=== PATIENT | female | born 1980 | race Caucasian/White ===

== ENCOUNTER → 2016-09-21 | Outpatient (REF) ==
[~2016-09-21] MED LIST: ASPIRIN 32325 MG/TAB PO; COUMADIN 1010 MG/TAB PO; FIORICET 325 MG1 TA1 PO; FIORINAL 325 MG1 CAP PO; KLONOPIN 0.5MG0.5 MG PO; LEXAPRO20 MG PO; LYRICA 150MG C150 MG PO; PLAQUENIL 200M200 MG PO; TOPAMAX 100MG100 M1 PO; ULTRAM 50MG TAB50 MG PO
== END ==
LOC: ZLAB.WCH 11:38
DX: Z01.89 Encounter for other specified special examinations (principal)

== ENCOUNTER 2017-04-02 18:38 | Inpatient (IN) | payer MEDICARE ==
[~2017-04-02] VITALS: Ht 165.1 cm; Wt 56.6 kg
[2017-04-02] MEDS ORDERED: COUMADIN 1010 MG/TAB PO (18:53)
[2017-04-02 19:37] LABS: INR 2.8 (0.8-3.0); PROTHROMBIN TIME 32.8 SECONDS (9.7-12.8)
[2017-04-02 19:42] LABS: HEMATOCRIT 39.7 % (37.0-47.0); HEMOGLOBIN 12.8 g/dl (12.5-16.0); MEAN CELL VOLUME 82 fl (80.0-100.0); MEAN CORPUSCULAR HEMOGLOBIN 26 pg (27.0-31.0); MEAN CORPUSCULAR HGB CONC 32 g/dl (33.0-37.0); MEAN PLATELET VOLUME 12.1 fl (7.4-10.4); PLATELET COUNT 248 K/mm3 (130-400); RED BLOOD COUNT 4.84 M/mm3 (4.10-5.30); REDCELL DISTRIBUTION WIDTH-CV 20.6 % (11.5-14.5); WHITE BLOOD COUNT 5.6 K/mm3 (4.8-10.8)
[2017-04-02 19:43] LABS: ADD PATHOLOGY DIFF REVIEW NO
[2017-04-02 20:02] LABS: BAND 7 % (0-10); BASOPHIL 1 % (0-2); EOSINOPHIL 3 % (0-4); NEUTROPHILS 52 % (42.0-75.2); TOTAL CELLS COUNTED 100
[2017-04-02 20:03] LABS: PLATELET ESTIMATE NORMAL (NORMAL)
[2017-04-02] MEDS ORDERED: LYRICA 150MG C150 MG PO (20:15)
[2017-04-02 20:16] LABS: ADJUSTED CALCIUM 8.6 mg/dL (8.4-10.2); ALANINE AMINOTRANSFERASE 24 U/L (9-52); ALBUMIN 3.5 gm/dL (3.5-5.0); ALKALINE PHOSPHATASE 57 U/L (50-136); ANION GAP 6 mmol/L (7-16); BILIRUBIN,TOTAL 0.3 mg/dL (0.0-1.0); BLOOD UREA NITROGEN 16 mg/dL (7-17); CALCIUM 8.2 mg/dL (8.4-10.2); CARBON DIOXIDE 20 mmol/L (22-30); CHLORIDE 110 mmol/L (98-107); CREATININE, serum 0.83 mg/dL (0.52-1.25); GLUCOSE 82 mg/dL (74-106); POTASSIUM 3.5 mmol/L (3.4-5.0); SODIUM 137 mmol/L (137-145); TOTAL PROTEIN 6.6 gm/dL (6.4-8.2)
[2017-04-02] MEDS ORDERED: LEXAPRO20 MG PO (20:16)
[2017-04-02] MEDS ORDERED: TOPAMAX 100MG100 M1 PO (20:16)
[2017-04-02] MEDS ORDERED: PLAQUENIL 200M200 MG PO (20:17)
[2017-04-02] MEDS ORDERED: ASPIRIN 32325 MG/TAB PO (20:17)
[2017-04-02 20:18] LABS: C-REACTIVE PROTEIN < 0.5 mg/dL (0.0-0.9)
[2017-04-02] MEDS ORDERED: FIORINAL 325 MG1 CAP PO (20:18)
[2017-04-02] MEDS ORDERED: ULTRAM 50MG TAB50 MG PO (20:19)
[2017-04-02] MEDS ORDERED: FIORICET 325 MG1 TA1 PO (20:19)
[2017-04-02] MEDS ORDERED: KLONOPIN 0.5MG0.5 MG PO (20:20)
[2017-04-02 22:35] VITALS: BP 132/83; PULSE 63; TEMP 97.1
[2017-04-03 05:35] VITALS: BP 127/73; PULSE 64; TEMP 97.2
[2017-04-03 06:53] LABS: PROTHROMBIN TIME 36.6 SECONDS (9.7-12.8)
[2017-04-03 06:57] LABS: INR 3.1 (0.8-3.0)
[2017-04-03 08:50] VITALS: BP 125/74; PULSE 62; TEMP 98.1
[2017-04-03 12:29] VITALS: BP 130/88; PULSE 56; TEMP 97.8
[2017-04-03 15:51] VITALS: BP 139/79; PULSE 61; TEMP 96.6
== END 2017-04-03 19:37 | disposition left against medical advice (07) | DRG 312 ==
LOC: COL.ER 18:38 → MEDICAL 20:32
PROVIDERS: Family Medicine
DX: R55 Syncope and collapse (principal); D68.61 Antiphospholipid syndrome; M32.9 Systemic lupus erythematosus, unspecified; F17.200 Nicotine dependence, unspecified, uncomplicated; Z79.01 Long term (current) use of anticoagulants; Z86.73 Personal history of transient ischemic attack (TIA), and cerebral infarction without residual deficits
CPT/HCPCS: 99222-AI; 99232-AI; 99233-AI; A9585; J7030

== ENCOUNTER 2020-07-06 13:13 | Emergency (ER) | payer MEDICARE ==
[~2020-07-06] VITALS: Ht 165.1 cm; Wt 56.8 kg
[2020-07-06 13:24] VITALS: TEMP 97.5
[2020-07-06 14:01] LABS: BASO # 0.1 (0.0-0.2); BASO % 1.4 % (0.0-2.0); EOS # 0.1 (0.0-0.7); EOS % 1.6 % (0-4.0); GRAN % 52.7 % (42.2-75.2); HEMOGLOBIN 12.7 g/dl (12.5-16.0); LYMPH # 1.8 (1.2-3.4); LYMPH % 31.4 % (20.0-51.0); MEAN CELL VOLUME 84 fl (80.0-100.0); MEAN CORPUSCULAR HEMOGLOBIN 27 pg (27.0-31.0); MEAN CORPUSCULAR HGB CONC 33 g/dl (33.0-37.0); MEAN PLATELET VOLUME 9.4 fl (7.4-10.4); MONO # 0.7 (0.1-0.6); MONO % 12.7 % (1.7-9.3); PLATELET COUNT 299 K/mm3 (130-400); RED BLOOD COUNT 4.67 M/mm3 (4.10-5.30); REDCELL DISTRIBUTION WIDTH-CV 18.1 % (11.5-14.5)
[2020-07-06 14:23] LABS: INR 1.1 (0.8-3.0); PROTHROMBIN TIME 12.5 SECONDS (9.7-12.8)
[2020-07-06 15:12] VITALS: BP 158/90; PULSE 70
== END 2020-07-06 15:14 | disposition home or self-care (01) ==
LOC: COL.ER 13:13
PROVIDERS: Physician Assistant
DX: G43.109 Migraine with aura, not intractable, without status migrainosus (principal); Z86.73 Personal history of transient ischemic attack (TIA), and cerebral infarction without residual deficits; Z90.710 Acquired absence of both cervix and uterus; Z88.6 Allergy status to analgesic agent; Z88.1 Allergy status to other antibiotic agents; Z88.8 Allergy status to other drugs, medicaments and biological substances; Z79.01 Long term (current) use of anticoagulants; Z79.82 Long term (current) use of aspirin
CPT/HCPCS: J1630; J2405; J7030

== ENCOUNTER 2020-08-28 17:00 | Emergency (ER) | payer MEDICARE ==
[~2020-08-28] VITALS: Ht 165.1 cm; Wt 56.8 kg
[2020-08-28 18:34] LABS: PROTHROMBIN TIME 11.5 SECONDS (9.7-12.8)
[2020-08-28 19:53] VITALS: BP 146/64; PULSE 88; TEMP 97.2
== END 2020-08-28 20:02 | disposition home or self-care (01) ==
LOC: COL.ER 17:00
PROVIDERS: Physician Assistant
DX: G43.909 Migraine, unspecified, not intractable, without status migrainosus (principal); R53.1 Weakness; Z86.73 Personal history of transient ischemic attack (TIA), and cerebral infarction without residual deficits; Z88.6 Allergy status to analgesic agent; Z88.8 Allergy status to other drugs, medicaments and biological substances; Z79.01 Long term (current) use of anticoagulants; Z79.891 Long term (current) use of opiate analgesic; Z79.82 Long term (current) use of aspirin
CPT/HCPCS: J1885; J2765; J7030

== ENCOUNTER 2020-11-10 19:42 | Emergency (ER) | payer MEDICARE ==
[~2020-11-10] VITALS: Ht 180.3 cm; Wt 65.9 kg
[2020-11-10 20:19] LABS: BASO # 0.1 (0.0-0.2); BASO % 0.9 % (0.0-2.0); EOS # 0.1 (0.0-0.7); EOS % 2.3 % (0-4.0); GRAN # 3.3 (1.4-6.5); HEMATOCRIT 42.9 % (37.0-47.0); HEMOGLOBIN 14.1 g/dl (12.5-16.0); LYMPH # 1.6 (1.2-3.4); LYMPH % 28.8 % (20.0-51.0); MEAN CELL VOLUME 83 fl (80.0-100.0); MEAN CORPUSCULAR HEMOGLOBIN 27 pg (27.0-31.0); MEAN CORPUSCULAR HGB CONC 33 g/dl (33.0-37.0); MEAN PLATELET VOLUME 10.2 fl (7.4-10.4); MONO # 0.6 (0.1-0.6); MONO % 9.8 % (1.7-9.3); PLATELET COUNT 269 K/mm3 (130-400); REDCELL DISTRIBUTION WIDTH-CV 18.7 % (11.5-14.5)
[2020-11-10 20:27] LABS: INR 1.5 (0.8-3.0); PROTHROMBIN TIME 17.2 SECONDS (9.7-12.8)
[2020-11-10 20:30] LABS: ALANINE AMINOTRANSFERASE 15 U/L (4-34); ALBUMIN 3.8 gm/dL (3.5-5.0); ALKALINE PHOSPHATASE 65 U/L (50-136); ANION GAP 8 mmol/L (7-16); AST,SGOT 28 U/L (15-37); BILIRUBIN,TOTAL 0.6 mg/dL (0.0-1.0); BLOOD UREA NITROGEN 10 mg/dL (7-17); CALCIUM 8.7 mg/dL (8.4-10.2); CARBON DIOXIDE 26 mmol/L (22-30); CHLORIDE 104 mmol/L (98-107); CREATININE, serum 0.75 (0.52-1.25); GLUCOSE 98 mg/dL (74-106); POTASSIUM 3.8 mmol/L (3.4-5.0); SODIUM 138 mmol/L (137-145); TOTAL PROTEIN 7.3 gm/dL (6.4-8.2)
[2020-11-10 20:37] LABS: ALCOHOL(ethanol),MEDICAL < 10 mg/dL
[2020-11-10 20:46] LABS: PROLACTIN 25.5 ng/mL (3.0-18.6)
[2020-11-11 00:26] VITALS: BP 110/75; PULSE 69; TEMP 97.5
== END 2020-11-11 00:26 | disposition home or self-care (01) ==
LOC: COL.ER 19:42
PROVIDERS: Emergency Medicine
DX: G40.909 Epilepsy, unspecified, not intractable, without status epilepticus (principal); F17.210 Nicotine dependence, cigarettes, uncomplicated; Z86.73 Personal history of transient ischemic attack (TIA), and cerebral infarction without residual deficits; Z90.710 Acquired absence of both cervix and uterus; Z88.1 Allergy status to other antibiotic agents; Z88.6 Allergy status to analgesic agent; Z88.8 Allergy status to other drugs, medicaments and biological substances; Z79.82 Long term (current) use of aspirin
CPT/HCPCS: J7030

== ENCOUNTER 2021-01-03 18:49 | Inpatient (IN) | payer MEDICARE ==
[~2021-01-03] VITALS: Ht 165.1 cm; Wt 63.6 kg
[2021-01-03 19:49] LABS: BASO # 0.1 (0.0-0.2); BASO % 1.3 % (0.0-2.0); EOS # 0.1 (0.0-0.7); EOS % 2.4 % (0-4.0); GRAN # 3.3 (1.4-6.5); GRAN % 60.9 % (42.2-75.2); HEMATOCRIT 40.6 % (37.0-47.0); HEMOGLOBIN 13.2 g/dl (12.5-16.0); LYMPH # 1.3 (1.2-3.4); LYMPH % 22.9 % (20.0-51.0); MEAN CELL VOLUME 87 fl (80.0-100.0); MEAN CORPUSCULAR HEMOGLOBIN 28 pg (27.0-31.0); MEAN CORPUSCULAR HGB CONC 33 g/dl (33.0-37.0); MEAN PLATELET VOLUME 10.7 fl (7.4-10.4); MONO # 0.7 (0.1-0.6); MONO % 12.3 % (1.7-9.3); PLATELET COUNT 234 K/mm3 (130-400); RED BLOOD COUNT 4.68 M/mm3 (4.10-5.30); REDCELL DISTRIBUTION WIDTH-CV 20.1 % (11.5-14.5)
[2021-01-03 19:53] LABS: PROTHROMBIN TIME 11.4 SECONDS (9.7-12.8)
[2021-01-03 19:56] LABS: PARTIAL THROMBOPLASTIN TIME 33.4 SECONDS (26.0-37.0)
[2021-01-03 19:57] LABS: ALANINE AMINOTRANSFERASE 11 U/L (4-34); ALBUMIN 3.7 gm/dL (3.5-5.0); ALKALINE PHOSPHATASE 57 U/L (50-136); ANION GAP 6 mmol/L (7-16); AST,SGOT 26 U/L (15-37); BILIRUBIN,TOTAL 0.6 mg/dL (0.0-1.0); BLOOD UREA NITROGEN 16 mg/dL (7-17); CALCIUM 8.6 mg/dL (8.4-10.2); CARBON DIOXIDE 26 mmol/L (22-30); CHLORIDE 103 mmol/L (98-107); CREATININE, serum 0.68 (0.52-1.25); GLUCOSE 92 mg/dL (74-106); POTASSIUM 4.4 mmol/L (3.4-5.0); SODIUM 135 mmol/L (137-145); TOTAL PROTEIN 6.9 gm/dL (6.4-8.2)
[2021-01-03 20:18] LABS: ALCOHOL(ethanol),MEDICAL < 10 mg/dL; TROPONIN-I < 0.012 ng/mL (0.000-0.035)
[2021-01-03 20:39] LABS: PH 8 (5-8); SQUAMOUS EPITHELIAL 0-2 /hpf; URINE APPEARANCE Clear; URINE BACTERIA Rare /hpf; URINE BILIRUBIN Negative (NEGATIVE); URINE BLOOD Negative (NEGATIVE); URINE COLOR Straw; URINE GLUCOSE Negative (NEGATIVE); URINE KETONE Negative (NEGATIVE); URINE LEUKOCYTE ESTERASE Trace (NEGATIVE); URINE NITRATE Negative (NEGATIVE); URINE PROTEIN(semi-quant) Negative (NEGATIVE); URINE RBC 0-2 /hpf; URINE UROBILINOGEN Negative (NEGATIVE); URINE WBC 0-2 /hpf
[2021-01-03 20:46] LABS: TRICYCLIC ANTIDEPRESS URINE NEGATIVE
[2021-01-03 20:51] LABS: COLLECTION METHOD CLEAN CATCH
[2021-01-04] VITALS (8 sets, daily range): BP systolic 110–138; BP diastolic 64–98; PULSE 50–67; TEMP 97.4–98.4
--- NOTE | 2021-01-04 05:32 | NUR ---
PT HAS BEEN RESTING THROUGH THE NIGHT. NO SEIZURE ACTIVITY NOTED. CONTINUED RT SIDED WEAKNESS.
[2021-01-04] MEDS ORDERED: CYMBALTA 30MG30 MG PO (06:20)
[2021-01-04] MEDS ORDERED: COUMADIN 5MG5 MG/TAB PO (06:25)
[2021-01-04 06:32] LABS: BASO # 0.1 (0.0-0.2); EOS # 0.2 (0.0-0.7); EOS % 2.9 % (0-4.0); GRAN # 2.9 (1.4-6.5); GRAN % 49.2 % (42.2-75.2); HEMATOCRIT 37.7 % (37.0-47.0); HEMOGLOBIN 12.5 g/dl (12.5-16.0); LYMPH % 34.4 % (20.0-51.0); MEAN CELL VOLUME 85 fl (80.0-100.0); MEAN CORPUSCULAR HEMOGLOBIN 28 pg (27.0-31.0); MEAN CORPUSCULAR HGB CONC 33 g/dl (33.0-37.0); MEAN PLATELET VOLUME 10.7 fl (7.4-10.4); MONO # 0.7 (0.1-0.6); MONO % 12.3 % (1.7-9.3); PLATELET COUNT 217 K/mm3 (130-400); RED BLOOD COUNT 4.43 M/mm3 (4.10-5.30)
[2021-01-04 06:41] LABS: CALCIUM 8.1 mg/dL (8.4-10.2); CHOLESTEROL RISK RATIO 1.6; CREATININE, serum 0.68 (0.52-1.25); POTASSIUM 3.7 mmol/L (3.4-5.0)
--- NOTE | 2021-01-04 08:00 | NUR ---
PATIENT IS VERY DROWSY BUT ARROUSED TO PHYSICAL STUMULI. VSS. NOTED IRREGULAR/REGULAR HR IN THE 50'S ON TELE. PATIENT HAS HX OF CHRONIC COUMADIN, CVA & SEIZURES. SEIZURE PRECAUTIONS INPLACE. NEURO CHECKS Q2H. HEAD TO TOE ASSESSMENT COMPLETE. AM MEDS GIVEN WITH SIPS. NPO FOR MRI TODAY. ECHO ALSO ORDERED. NO C/O PAIN. PATIENT IS JUST VERY DROWSY AND SLEPT THROUGH MOST OF THE NURSING ASSESSMENT. AM BS WAS 89. NO OTHER NEEDS AT THIS TIME. CALL LIGHT IN REACH.
--- NOTE | 2021-01-04 10:24 | NUR ---
SW met with the patient to discuss discharge plan. The patient appeared groggy and would fall asleep in-between questions. The patient lives in [place] with her fianceOsiel (ph#[phone]). She has two children that are twelve and [id number] that live with her housekeeping department worker. She states that they are with their father while she is here. She reports needing some assistance with ADLs before coming in and has a walker and wheelchair. She states that Osiel was helping her with her ADLs. The patient's PCP is Dr. Jesus Roca and she receives her medications [facility]. The patient does not have a DPOA-HC. The patient was admitted for possible CVA. PT has worked with the patient and recommend IPR. SW attempted to discuss their recommendation with the patient. The patient started falling back asleep and would not wake. SW to follow back up with the patient about IPR at a later time. SW then contacted and updated the patient's Osiel orellana. Osiel reports that the patient was independent with ADLs before she had the seizures and falling down. He has been helping her with her ADLs since then. He reports that he is an amputee and that they have multiple canes, walkers, and wheelchairs. SW discussed PT's recommendation of IPR. Osiel states that it is ultimately the patient's decision. He plans on coming up to the hospital later today. SW to continue to follow. *Discharge plan: post-acute rehab?*
[2021-01-04] MEDS ORDERED: COUMADIN 77.5 MG/TAB PO (10:30)
[2021-01-04] MEDS ORDERED: LOPRESSOR 550 MG/TAB PO (10:31)
--- NOTE | 2021-01-04 11:40 | NUR ---
PATIENT BACK FROM MRI. ECHO NOW AT BEDSIDE.
--- NOTE | 2021-01-04 15:26 | NUR ---
JULIETH followed up with the patient to discuss PT's recommendation of post-acute rehab. The patient was awake. The patient reports that she would be interested in IPR. JULIETH notified IPR Director. JULIETH also inquired about a DPOA-HC. The patient states that she does not have one, but was interested in obtaining a form. JULIETH provided. She states that she is not , her children are under the age of 18. She states her parents are still alive. JULIETH informed her of how her parents would be her legal next of kin, if she does not have a DPOA-HC. The patient verbalized understanding.
--- NOTE | 2021-01-04 22:10 | NUR ---
PATIENT REPORTED THAT SHE WANTED A NICOTINE PATCH NIGHT PROVIDER INFORMED AND SAME ORDERED.DISCUSSED WITH PROVIDER ON ACCUCHLISAS NAKIA URBAN.
--- NOTE | 2021-01-05 03:50 | NUR ---
I WAS CALLED BY THE MODEL MAKER PLASTER THAT THE PATIENT HAD A SEIZURE PASSED OUT ON HER WAY FROM THE BATHROOM.PATIENT WAS LOWERED TO THE GROUND AND DIDN'T SUSTAIN ANY INJURY.WAS POSITIONED ON HER SIDE WITH A PILLOW UNDER HER HEAD.NIGHT PROVIDER NOTIFIED SAID I GIVE THE ARTIVAN PER OCT.ORDERED PROLACTIN LEVELS TO BE CHECKED.PATIENT REGAINED CONSCIOUSNESS.WAS PUT BACK TO BED AND LEFT COMFORTABLE.BED ALARM AND SIDERAILS WERE PUT UP.
[2021-01-05 04:09] VITALS: BP 148/81; PULSE 58; TEMP 97.5
[2021-01-05 07:57] VITALS: BP 144/90; PULSE 66; TEMP 97.8
--- NOTE | 2021-01-05 08:00 | NUR ---
PATIENT IS ORIENTED & DROWSY HOWEVER, IS MORE AWAKE THAN PREVIOUS DAY. PATIENT SITTING UP IN BED. PATIENT JUST GOT BACK FROM THE BATHROOM. VSS. DENIES PAIN OR NAUSEA. RIGHT FORARM IV TO INT. BREAKFAST TRAY ORDERED, AM MEDS GIVEN. EAR MOLD LABORATORY TECHNICIAN REPORTED PATIENT HAD A SEIZURE AT 0350 IN THE AM. PATIENT STATES SHE DOESN'T REMEMBER IT. NEURO CHECKS WNL. SEIZURE PRECAUTIONS INPLACE. HEAD TO TOE ASSESSMENT WNL. PT/OT CONSULTED. NO OTHER NEEDS AT THIS TIME. CALL LIGHT IN REACH.
--- NOTE | 2021-01-05 08:30 | NUR ---
HOSPITALIST TEAM ROUNDING, SEE ORDERS.
--- NOTE | 2021-01-05 12:00 | NUR ---
PATIENT RESTING UP IN BEDSIDE CHAIR. PATIENT HAVING A DIFFICULT TIME STAYING AWAKE DURING THE DAY TIME.
--- NOTE | 2021-01-05 12:15 | NUR ---
First visit patient was asleep. Forge Operator prayed for patient while standing outside of door.
[2021-01-05 12:32] VITALS: BP 126/82; PULSE 77; TEMP 97.5
--- NOTE | 2021-01-05 14:02 | NUR ---
JULIETH attended clinical rounds. There was no evidence of a CVA. The patient continues to have right sided weakness. The clinical team suspects that the weakness is psych related. The hospitalist addressed discharge plan and states that he will probably not accept her to IPR and that we would need to be looking at a SNF vs HH vs outpatient PT. A psych consult was ordered. JULIETH then collaborated with Bharat from PT. Bharat informed SW that he does not feel like the patient would be safe to return home yet. JULIETH followed up with the patient. The patient reports that she does not feel comfortable returning home upon discharge and would be interested is post-acute rehab. JULIETH informed her of the different options. The patient was agreeable for JULIETH to send referrals. She states that she has been to [facility] in the past. JULIETH contacted and faxed a referral to [facility], [facility]. JULIETH attempted to contact Jaime at [facility]. JULIETH left her a voicemail, giving her the referral. JULIETH also discussed with the hospitalist about reconsidering her for IPR. Awaiting screens.
--- NOTE | 2021-01-05 14:55 | NUR ---
PATIENT C/O HEADACHE. GAVE SCHEDULED LYRICA AND PRN TYLENOL. PATIENT ALSO SIPPING CAFFIENE. WILL MONITOR.
[2021-01-05 15:47] VITALS: BP 138/81; PULSE 66; TEMP 87.9
--- NOTE | 2021-01-05 15:55 | NUR ---
Jaime, at [facility], reports that they are full and would not be able to accept the patient at this time. Mile, at [facility], reports that they have declined the patient.
[2021-01-05 19:27] VITALS: BP 147/79; PULSE 75; TEMP 97.3
--- NOTE | 2021-01-05 20:05 | NUR ---
Assessment complete. Pt is AXO X3, states she has pain "all over" rated at a 5/10. Pt is sitting up in the bed talking on her cell phone at this time and she denies further needs. Call light within reach.
[2021-01-05 22:51] VITALS: BP 151/79; PULSE 84; TEMP 98.1
[2021-01-06] VITALS (7 sets, daily range): BP systolic 118–165; BP diastolic 73–99; PULSE 66–90; TEMP 97.3–98
--- NOTE | 2021-01-06 08:00 | NUR ---
PATIENT IS ORIENTED WITH INTERMIT DROWSINESS. PATIENT SITTING UP IN BED. PATIENT JUST GOT BACK FROM THE BATHROOM. VSS. DENIES PAIN OR NAUSEA. RIGHT FORARM IV TO INT. BREAKFAST TRAY ORDERED, AM MEDS GIVEN. GREASE RENDERER REPORTED PATIENT HAD A PSEUDOSEIZURE. NEURO CHECKS WNL. PROLACTINE NORMAL. SEIZURE PRECAUTIONS STILL INPLACE. HEAD TO TOE ASSESSMENT WNL. PT/OT CONSULTED. NO OTHER NEEDS AT THIS TIME. CALL LIGHT IN REACH.
--- NOTE | 2021-01-06 10:55 | NUR ---
Eli, at [facility], reports that the patient does not have enough medical management to be able to accept. They have to decline the patient at this time. JULIETH has left messages for Nell and [facility] on whether they can accept or not. Briseida, IPR Director, reports that they have declined the patient. The patient is to have a psych consult today.
--- NOTE | 2021-01-06 11:13 | NUR ---
HOSPITALIST TEAM ROUNDING, SEE ORDERS.
--- NOTE | 2021-01-06 14:15 | NUR ---
JULIETH faxed updates to [facility] and [facility]. Ravi, at [facility], reports that they would like to see how the psych consult goes. Haile, at [facility], requested RN notes. JULIETH faxed the RN notes to Haile.
--- NOTE | 2021-01-06 19:30 | NUR ---
PT SITTING UP IN BED. SERVICE DOG HERE. FIANCE HERE VISITING. NO SEIZURE ACTIVITY AT THIS TIME. RT SIDED WEAKNESS NOTED. SEE NEUROCHECKS. PT LAUGHING AND PARTICIPATING IN CONVERSATION. WANTS TO KNOW STATUS OF SNF PLACEMENT. WILL REVIEW SW PROGRESS NOTE. SEIZURE PRECAUTION NOTED- SEIZURE PADS ON BED. CALL LIGHT IN REACH. BED ALALRM SET.
--- NOTE | 2021-01-06 22:40 | NUR ---
BED ALARM SOUNDING. PT SITTING ON SIDE OF BED. NEEDING BR. ENC PT TO WAIT TILL STAFF IS HERE TO GET TO SIDE OF BED D/T SEIZURE PRECAUTIONS. PT VERBALIZED UNDERSTANDING. ASSISTED TO BR WITH WALKER. RT SIDED WEAKNESS. DRAGS RT FOOT. VOIDS W/O DIFFICULTY. BACK TO BED. PADDED SIDERAILS UP. PT WANTING NEW NICODERM PATCH. WILL CHECK TIMING. DRINKING SPRITE ZERO AND EATING CHOCOLATE ICE CREAM.
[2021-01-07 03:47] VITALS: BP 151/92; PULSE 82; TEMP 97.5
[2021-01-07] MEDS ORDERED: FIORICET 325 MG1 TA1 PO (03:59)
--- NOTE | 2021-01-07 03:59 | NUR ---
NOTIFIED FANTA PUCKETT OF PT'S C/O MIGRAINE/ NAUSEA. NEW RAVI NOTED.
[2021-01-07 07:00] LABS: INR 1.2 (0.8-3.0); PROTHROMBIN TIME 13.5 SECONDS (9.7-12.8)
[2021-01-07 08:30] VITALS: BP 141/64; PULSE 64; TEMP 97.4
--- NOTE | 2021-01-07 10:36 | NUR ---
SW attended clinical rounds. The patient is ready to d/c today. JULIETH followed up with the patient and informed her of [facility]'s acceptance. They patient is agreeable to going to [facility]. SW presented and read the IM form outloud to her. The patient verbalized understanding and gave SW approval to sign the form on her behalf. JULIETH provided her with a copy. JULIETH attempted to contact and update the patient's fiance, Osiel. SW left him a voicemail. The patient reports that she has already updated him herself. The patient is to discharge today, 01/07, to [facility] for a skilled stay. [facility] was [facility] at 1430, [facility] JULIETH informed the patient and her RN of the time. They were both agreeable to the time. No additional needs at this time.
[2021-01-07] MEDS ORDERED: LIPITOR20 MG PO (10:46)
[2021-01-07] MEDS ORDERED: NICODERM C14 MG/PATC TD (10:46)
[2021-01-07] MEDS ORDERED: ASPIRIN 81M81 MG/TA2 PO (10:48)
[2021-01-07] MEDS ORDERED: LOPRESSOR 225 MG/TAB PO (10:48)
[2021-01-07] MEDS ORDERED: LAMICTAL 25MG T25 MG PO (10:49)
[2021-01-07] MEDS ORDERED: DYAZIDE 25 MG-31 CAP PO (10:50)
[2021-01-07] MEDS ORDERED: PRISTIQ25 MG PO (10:51)
--- NOTE | 2021-01-07 11:30 | NUR ---
Patient is doing well this morning. Got her fioricet for her migraine. Checked with hospitalist and pharmacist and they did not find any interactions with her medications. Denies nausea. No seizure activity this morning. She will be discharging to [facility] this afternoon. No other changes at this time. Call light within reach.
[2021-01-07 11:34] VITALS: BP 130/90; PULSE 66; TEMP 98.4
[2021-01-07 13:37] VITALS: BP 130/90; PULSE 66; TEMP 98.4
--- NOTE | 2021-01-07 14:20 | NUR ---
Report called to Aaron No RN. Waiting for transport to pick her up. She is dressed and packed up. Info packet ready for them as well. No other changes at this time. Call light within reach.
--- NOTE | 2021-01-07 15:15 | NUR ---
Patient is leaving at this time. All belongings packed up and sent with patient.
== END 2021-01-07 15:15 | DRG 57 ==
LOC: COL.ER 18:49 → SURG 22:35
PROVIDERS: Emergency Medicine; Internal Medicine; Student in an Organized Health Care Education/Training Program; ADMIT Hospitalist
DX: G81.91 Hemiplegia, unspecified affecting right dominant side (principal); G40.89 Other seizures; F33.8 Other recurrent depressive disorders; D68.61 Antiphospholipid syndrome; F41.1 Generalized anxiety disorder; M06.9 Rheumatoid arthritis, unspecified; Z79.01 Long term (current) use of anticoagulants; G43.109 Migraine with aura, not intractable, without status migrainosus; Z86.73 Personal history of transient ischemic attack (TIA), and cerebral infarction without residual deficits; Z79.82 Long term (current) use of aspirin; Z20.822 Contact with and (suspected) exposure to COVID-19
CPT/HCPCS: 99223-AI; 99232-AI; 99233-AI; 99239; A9585; J1650; J1953; J2060; J2405; J2765; J7030; Q9967

== ENCOUNTER → 2021-03-04 | Outpatient (REF) ==
[~2021-03-04] MED LIST changes: +ASPIRIN 81M81 MG/TA2 PO; +COUMADIN 5MG5 MG/TAB PO; +COUMADIN 77.5 MG/TAB PO; +CYMBALTA 30MG30 MG PO; +DYAZIDE 25 MG-31 CAP PO; +LAMICTAL 25MG T25 MG PO; +LIPITOR20 MG PO; +LOPRESSOR 225 MG/TAB PO; +LOPRESSOR 550 MG/TAB PO; +NICODERM C14 MG/PATC TD; +PRISTIQ25 MG PO
[2021-03-04 21:02] LABS: ALBUMIN 4.3 gm/dL (3.5-5.0); BILIRUBIN,TOTAL 0.8 mg/dL (0.0-1.0); CALCIUM 9.4 mg/dL (8.4-10.2); CREATININE, serum 0.84 (0.52-1.25); POTASSIUM 3.8 mmol/L (3.4-5.0); TOTAL PROTEIN 8.1 gm/dL (6.4-8.2)
[2021-03-09 08:09] LABS: IRON,SERUM 52 ug/dL (35-150)
[2021-03-09 08:18] LABS: TOTAL IRON BINDING CAPACITY 395 ug/dL (265-497)
== END ==
LOC: ZLAB.WCH 20:36
PROVIDERS: Internal Medicine
DX: Z01.89 Encounter for other specified special examinations (principal)

== ENCOUNTER 2021-10-10 22:23 | Observation (INO) | payer MEDICARE ==
[~2021-10-10] VITALS: Ht 165.1 cm; Wt 56.8 kg
[2021-10-10 23:08] LABS: BASO # 0.1 K/mm3 (0.0-0.2); EOS # 0.1 K/mm3 (0.0-0.7); EOS % 1.4 % (0.0-4.0); GRAN # 5.7 K/mm3 (1.4-6.5); GRAN % 75.3 % (42.2-75.2); HEMATOCRIT 43.9 % (37.0-47.0); HEMOGLOBIN 15.1 g/dl (12.5-16.0); LYMPH # 1.2 K/mm3 (1.2-3.4); LYMPH % 15.6 % (20.0-51.0); MEAN CELL VOLUME 92 fl (80.0-100.0); MEAN CORPUSCULAR HEMOGLOBIN 32 pg (27-31); MEAN CORPUSCULAR HGB CONC 34 g/dl (33.0-37.0); MEAN PLATELET VOLUME 10.3 fl (7.4-10.4); MONO # 0.5 K/mm3 (0.1-0.6); MONO % 6.4 % (1.7-9.3); PLATELET COUNT 252 K/mm3 (130-400); RED BLOOD COUNT 4.78 M/mm3 (4.10-5.30); REDCELL DISTRIBUTION WIDTH-CV 17.7 % (11.5-14.5)
[2021-10-10 23:15] LABS: INR 1.1 (0.8-3.0)
[2021-10-11] VITALS (11 sets, daily range): BP systolic 94–111; BP diastolic 38–56; PULSE 56–65; TEMP 97–98.3
--- NOTE | 2021-10-11 00:55 | NUR ---
Extremities mottled, SPO2 98-100 on room air. PT states "that's just my lupus rash it gets worse when I'm cold or get stressed" Warm blankets provided.
--- NOTE | 2021-10-11 00:55 | NUR ---
To post-op room 222 for recovery. Pt drowsy, oriented. no vagin al bleeding noted, Ice-pack to perineum.
--- NOTE | 2021-10-11 02:45 | NUR ---
up to bathroom with steady gait. Voids good amount, no vaginal bleeding. back to bed without difficulty
[2021-10-11 06:39] LABS: HEMOGLOBIN 11.1 g/dl (12.5-16.0)
[2021-10-11] MEDS ORDERED: FERROUS SU325 MG/TAB PO (08:00)
--- NOTE | 2021-10-11 09:00 | NUR ---
Discharge instructions reviewed with pt who verbalizes understanding.
--- NOTE | 2021-10-11 09:23 | NUR ---
Off unit to private vehicle via wheelchair.
--- NOTE | 2021-10-11 10:28 | NUR ---
Initial visit attempt; Patient sleeping. Director Financial Systems left card offering congratulations and God's blessings as well as information regarding the availability.
== END 2021-10-11 09:23 | disposition home or self-care (01) ==
LOC: COL.ER 22:23 → PACU 23:52 → OB 23:56
PROVIDERS: Family Medicine; ADMIT Obstetrics & Gynecology
DX: S31.41XA Laceration without foreign body of vagina and vulva, initial encounter (principal); I10 Essential (primary) hypertension; I73.00 Raynaud's syndrome without gangrene; I34.0 Nonrheumatic mitral (valve) insufficiency; D68.61 Antiphospholipid syndrome; N93.9 Abnormal uterine and vaginal bleeding, unspecified; M06.9 Rheumatoid arthritis, unspecified; M32.9 Systemic lupus erythematosus, unspecified; F41.9 Anxiety disorder, unspecified; F17.290 Nicotine dependence, other tobacco product, uncomplicated; Z79.01 Long term (current) use of anticoagulants; Z79.899 Other long term (current) drug therapy; Z98.51 Tubal ligation status; Z79.82 Long term (current) use of aspirin; Z83.3 Family history of diabetes mellitus
CPT/HCPCS: J2704; J3010; J7120

== ENCOUNTER 2022-03-08 14:49 | Emergency (ER) | payer MEDICARE ==
[~2022-03-08] VITALS: Ht 167.6 cm; Wt 54.5 kg
[~2022-03-08 14:49] MED LIST changes: +FERROUS SU325 MG/TAB PO
[2022-03-08 15:02] VITALS: TEMP 98.3
[2022-03-08 15:21] LABS: COLLECTION METHOD CLEAN CATCH
[2022-03-08 15:25] LABS: BASO # 0.1 K/mm3 (0.0-0.2); BASO % 0.9 % (0.0-2.0); EOS # 0.2 K/mm3 (0.0-0.7); EOS % 3.6 % (0.0-4.0); GRAN # 3.1 K/mm3 (1.4-6.5); GRAN % 53.3 % (42.2-75.2); HEMATOCRIT 37.6 % (37.0-47.0); HEMOGLOBIN 12.7 g/dl (12.5-16.0); LYMPH # 1.7 K/mm3 (1.2-3.4); LYMPH % 28.9 % (20.0-51.0); MEAN CELL VOLUME 84 fl (80.0-100.0); MEAN CORPUSCULAR HEMOGLOBIN 28 pg (27-31); MEAN CORPUSCULAR HGB CONC 34 g/dl (33.0-37.0); MEAN PLATELET VOLUME 10.5 fl (7.4-10.4); MONO # 0.8 K/mm3 (0.1-0.6); MONO % 13.1 % (1.7-9.3); PLATELET COUNT 233 K/mm3 (130-400); RED BLOOD COUNT 4.47 M/mm3 (4.10-5.30)
[2022-03-08 15:28] LABS: PH 6 (5-8); URINE APPEARANCE Hazy (CLEAR/HAZY); URINE BACTERIA Rare /hpf (NONE SEEN); URINE BLOOD Negative (NEGATIVE); URINE COLOR Yellow (YELLOW); URINE GLUCOSE Negative (NEGATIVE); URINE KETONE Negative (NEGATIVE); URINE NITRATE Positive (NEGATIVE); URINE PROTEIN(semi-quant) Negative (NEGATIVE); URINE RBC 0-2 /hpf (0-2); URINE UROBILINOGEN Negative (NEGATIVE)
[2022-03-08 15:31] LABS: INR 1.1 (0.8-3.0); PROTHROMBIN TIME 12.4 SECONDS (9.7-12.8)
[2022-03-08 15:37] LABS: TRICYCLIC ANTIDEPRESS URINE NEGATIVE
[2022-03-08 15:39] LABS: ALBUMIN 3.4 gm/dL (3.5-5.0); BILIRUBIN,TOTAL 0.6 mg/dL (0.2-1.2); CALCIUM 8.6 mg/dL (8.4-10.2); CREATININE, serum 0.81 mg/dL (0.57-1.11); POTASSIUM 3.6 mmol/L (3.5-4.5); TOTAL PROTEIN 6.4 gm/dL (6.2-8.1)
[2022-03-08 17:15] LABS: TSH w REFLEX 0.601 uIU/mL (0.350-4.940)
[2022-03-08] MEDS ORDERED: KEPPRA 500MG500 MG PO (17:21)
[2022-03-08] MEDS ORDERED: CEPHALEXIN500 M1 PO (17:49)
[2022-03-08 18:55] VITALS: BP 157/82; PULSE 54
== END 2022-03-08 19:08 | disposition home or self-care (01) ==
LOC: COL.ER 14:49
PROVIDERS: Emergency Medicine
DX: G40.909 Epilepsy, unspecified, not intractable, without status epilepticus (principal); F17.200 Nicotine dependence, unspecified, uncomplicated; Z88.1 Allergy status to other antibiotic agents; Z28.310 Unvaccinated for COVID-19
CPT/HCPCS: J0696; J1885; J1953; J7120

== ENCOUNTER 2023-06-08 13:40 | Observation (INO) | payer MEDICARE ==
[~2023-06-08] VITALS: Ht 165.1 cm; Wt 68.2 kg
[~2023-06-08 13:40] MED LIST changes: +CEPHALEXIN500 M1 PO; -COUMADIN 77.5 MG/TAB PO; +KEPPRA 500MG500 MG PO; -LYRICA 150MG C150 MG PO; +LYRICA200 MG PO
[2023-06-08 16:00] VITALS: BP 138/66; PULSE 61; TEMP 97.2
--- NOTE | 2023-06-08 17:04 | NUR ---
Patient arrived from [facility] around 1600. Patient is alert to self, situation, and location. Patient did not answer date/time question correctly. Patient appears drowsy and struggles to keep eyes open. Noted right eyelid to be more droopy than left. Handgrips unequal, right fabrication and layout craftsman weak and left fabrication and layout craftsman strong. Patient ambulated to bathroom x1 assist, gait is unsteady. Slight limp noted to right leg. Patient's voice slightly slurred, but sentences make sense and patient is able to comprehend questions being asked. NIH scale score 8. EMS from [place] stated patient has repetitive questions. Upon doing medication reconciliation, patient admitted to not taking prescribed seizure medications, lipitor, metoprolol, etc. Medications that have been noncompliant were marked for attention. During admission intake patient admitted to weekly marijuana use and daily cigarette use. Patient currently resting in bed with call light in reach. Fall and seizure precautions in place due to weakness and seizure history.
--- NOTE | 2023-06-08 18:45 | NUR ---
Upon assessing patient for routine stroke scale, a small bug was noted crawling in sheets. Bug placed in container and noted to be bed bug. Patient assisted into shower and washed head to toe. 4 total bed bugs found on patient. More noted to belongings. Bed bugs believed to crawl out of purse that was placed on bed. Patient belongings aside from phone, glasses, and ipad double bagged in biohazard bag and put in closet. Other belongings wiped down with saniwipes. Patient placed in new gown and transferred from [facility] to [facility]. 352 door sealed with tape. Patient denies being aware of bed bugs. Gait continues to be unsteady, slight tremor noted to right side during shower and ambulation. Right leg and knee noted to buckle at times. x2 assistance utilized. supervisor asbestos removal and physician notified about bed bugs. Dr. Recio updated on patient overall condition and medication noncompliance.
[2023-06-08 18:54] LABS: HEMATOCRIT 44.2 % (37.0-47.0); MEAN CELL VOLUME 93 fl (80.0-100.0); MEAN CORPUSCULAR HEMOGLOBIN 32 pg (27-31); MEAN CORPUSCULAR HGB CONC 34 g/dl (33.0-37.0); MEAN PLATELET VOLUME 9.9 fl (7.4-10.4); PLATELET COUNT 181 K/mm3 (130-400); RED BLOOD COUNT 4.76 M/mm3 (4.10-5.30); REDCELL DISTRIBUTION WIDTH-CV 15.1 % (11.5-14.5)
[2023-06-08 19:08] LABS: CALCIUM 8.4 mg/dL (8.4-10.2); CREATININE, serum 0.85 mg/dL (0.57-1.11); POTASSIUM 4.1 mmol/L (3.5-4.5)
[2023-06-08 19:10] LABS: INR 1.9 (0.8-3.0); PROTHROMBIN TIME 20.7 SECONDS (9.7-12.8)
[2023-06-08 19:43] VITALS: BP 153/85; PULSE 51; TEMP 97.7
[2023-06-08 21:00] VITALS: BP_SYST 153
--- NOTE | 2023-06-08 21:00 | NUR ---
Patient resting in bed. Patient is very hard to arouse. Patient is able to tell me her name and date of , unable to tell me correct location or year. Assessment complete. Denies any pain at this time. Upon assessment of skin, found vape under the covers by patient leg. Informed patient that vapes are not allowed and that it would be put in a sealed bag in her med box in the med room and it will be returned to her upon discharge. Patient verbalized understanding. IV in left AC flushes easily. Denies any other needs at this point. Seizure pads put on for seizure precautions. Call light and personal items in reach. Bed in low position and bed alarm on.
[2023-06-08 23:51] VITALS: BP 120/57; BP_SYST 128; PULSE 62; TEMP 98.3
[2023-06-09] VITALS (12 sets, daily range): BP systolic 90–149; BP diastolic 55–89; PULSE 57–70; TEMP 97.4–98
[2023-06-09 01:39] LABS: TRICYCLIC ANTIDEPRESS URINE NEGATIVE
--- NOTE | 2023-06-09 06:00 | NUR ---
Patient sitting up in bed. States she has a headache and rates her pain at 3/10. Denies any other pain or needs at this time. Call light and personal items in reach. Bed in low position and bed alarm on.
[2023-06-09 06:16] LABS: HEMOGLOBIN 13.9 g/dl (12.5-16.0); MEAN CELL VOLUME 94 fl (80.0-100.0); MEAN CORPUSCULAR HEMOGLOBIN 31 pg (27-31); MEAN CORPUSCULAR HGB CONC 33 g/dl (33.0-37.0); MEAN PLATELET VOLUME 10.7 fl (7.4-10.4); PLATELET COUNT 179 K/mm3 (130-400); RED BLOOD COUNT 4.48 M/mm3 (4.10-5.30); REDCELL DISTRIBUTION WIDTH-CV 15.1 % (11.5-14.5)
[2023-06-09 06:17] LABS: INR 1.9 (0.8-3.0); PROTHROMBIN TIME 20.3 SECONDS (9.7-12.8)
[2023-06-09 07:05] LABS: ALBUMIN 3.1 gm/dL (3.5-5.0); BILIRUBIN,TOTAL 0.6 mg/dL (0.2-1.2); CALCIUM 8.3 mg/dL (8.4-10.2); CREATININE, serum 0.88 mg/dL (0.57-1.11); POTASSIUM 4.3 mmol/L (3.5-4.5); TOTAL PROTEIN 5.8 gm/dL (6.2-8.1)
--- NOTE | 2023-06-09 07:30 | NUR ---
PATIENT ASLEEP RESTING IN BED. FALL PRECAUTIONS IN PLACE.
[2023-06-09] MEDS ORDERED: IMDUR 30MG30 MG/TAB PO (09:11)
[2023-06-09] MEDS ORDERED: COREG12.5 MG PO (09:11)
[2023-06-09] MEDS ORDERED: COUMADIN 1MG1 MG/TAB PO (09:13)
[2023-06-09] MEDS ORDERED: PLAQUENIL 200M200 MG PO (09:15)
[2023-06-09] MEDS ORDERED: PRISTIQ25 MG PO (11:32)
--- NOTE | 2023-06-09 14:10 | NUR ---
PATIENT ASLEEP IN BED, UPON NURSE ENTERING ROOM. PATIENT AROUSES EASILY TO NAME. FALL PRECAUTION IN PLACE. CALL LIGHT WITHIN REACH. PATIENT DENIES ANY NEEDS OR COMPLAINTS AT THIS TIME. PATIENT UPDATED THAT HIS DAUGHTER KELSEY WOULD LIKE AN UPDATE. PER MÓNICA HE IS FINE WITH THIS. RN TO CALL HIS DAUGHTER KELSEY WITH AN UPDATE AFTER PHYSICIAN ROUNDS.
--- NOTE | 2023-06-09 16:23 | NUR ---
workers compensation claims supervisor met with patient to discuss discharge planning. Patient confirmed she lives in [place] and her preferred pharmacy is [facility]. Patient fell asleep during conversation and was hard to wake up. SW will continue discussing discharge planning at another date. SW met with nurse whom expressed she did not have any concerns at this time for patient. SW will continue to follow.
[2023-06-10] VITALS (9 sets, daily range): BP systolic 119–154; BP diastolic 64–84; PULSE 54–101; TEMP 97.4–98.1
--- NOTE | 2023-06-10 03:16 | NUR ---
Patient sitting up in bed. Denies any pain at this time. Assessment complete. IV in left forearm infusing with no complications. Denies any other needs at this time. Call light and personal items in reach. Bed in low position and bed alarm on.
--- NOTE | 2023-06-10 06:15 | NUR ---
Patient resting in bed. Denies any pain at this time. Assisted patient to bathroom and back to bed. Patient gait is unsteady at this time. Denies any other needs at this time. Call light and personal items in reach. Bed in low position and bed alarm on.
--- NOTE | 2023-06-10 08:00 | NUR ---
Patient sleeping in bed, easily awakened with verbal command. Alert and oriented, but drowsy. IV CDI, fluids infusing. Denies pain and discomfort. Seizure precautions in place. Call light within reach. Bed alarm on
--- NOTE | 2023-06-10 12:34 | NUR ---
Tipping Machine Operator rounds: Tipping Machine Operator visit attempted; Patient was on the phone.
--- NOTE | 2023-06-10 14:09 | NUR ---
JULIETH completed intake for patient. Patient provides that she lives in [facility] with boy friend. Patient provided next of kin is father Carmine Chaudhari [phone] whom she appointed as DPOA during intake. Documenation reviewed, completed, signed by patient and witnessed. Original copy placed in chart and copies provided to patient. Patient states that she does not utilize DME, is independent with ADL's and does not utilize HH services at this time. PCP is Dr. Palomares, pharmacy is [facility]. Patient states that she plans to return to her home upon DC. SW will continue to follow. DC plan: home
[2023-06-11] VITALS: BP 148/81; PULSE 60
[2023-06-11 03:27] VITALS: BP 139/65; BP 165/95; PULSE 60; TEMP 97.9
[2023-06-11 04:05] VITALS: BP_SYST 139
--- NOTE | 2023-06-11 05:05 | NUR ---
ASSESSMENT COMPLETE FOR TYPING ELEMENT MACHINE OPERATOR. PT COMPLAINED OF A HEADACHE A COUPLE OF TIMES TONIGHT. PT GIVEN TYLENOL FOR PAIN. PT FELT THE TYLENOL HELPED. PT DENIED CHEST PAIN, PALPITATIONS, SOB, N,V,D OR DIZZINESS. PT UP TO THE BATHROOM BY HERSELF, WHEN I WALKED INTO ROOM. GAIT STABLE. NEURO'S SHOWED SOME LLE WEAKNESS. CALL LIGHT WITHIN REACH.
[2023-06-11 06:31] LABS: INR 1.8 (0.8-3.0); PROTHROMBIN TIME 19.1 SECONDS (9.7-12.8)
[2023-06-11 06:33] LABS: CREATININE, serum 0.85 mg/dL (0.57-1.11); POTASSIUM 4.2 mmol/L (3.5-4.5)
[2023-06-11 06:34] LABS: HEMATOCRIT 46.9 % (37.0-47.0); HEMOGLOBIN 16.7 g/dl (12.5-16.0); MEAN CELL VOLUME 90 fl (80.0-100.0); MEAN CORPUSCULAR HEMOGLOBIN 32 pg (27-31); MEAN CORPUSCULAR HGB CONC 36 g/dl (33.0-37.0); MEAN PLATELET VOLUME 10.1 fl (7.4-10.4); PLATELET COUNT 201 K/mm3 (130-400); RED BLOOD COUNT 5.22 M/mm3 (4.10-5.30); REDCELL DISTRIBUTION WIDTH-CV 14.5 % (11.5-14.5)
[2023-06-11 07:01] VITALS: BP 159/88; PULSE 83; TEMP 98
--- NOTE | 2023-06-11 08:00 | NUR ---
Patient laying in bed, A&Ox4. States that she "didnt sleep much last night". VSS. IV CDI. Denies pain and discomfort. Call light within reach. Seizure precautions in place. Bed alarm on
[2023-06-11] MEDS ORDERED: WALKER MC (10:52)
[2023-06-11 11:04] VITALS: BP 126/69; PULSE 72; TEMP 97.9
[2023-06-11] MEDS ORDERED: ASPIRIN 81M81 MG/TA2 PO (12:38)
--- NOTE | 2023-06-11 13:00 | NUR ---
Discharge paperwork reviewed with the patient and friend at the bedside. Patient verbalized an understanding to follow doctors orders. IV removed, tip intact. Gauze and coban applied. Patient transfered by nursing staff by wheelchair to awaiting vehicle. No further needs expressed
== END 2023-06-11 13:00 | disposition home or self-care (01) ==
LOC: MEDICAL 13:40
PROVIDERS: Physician Assistant; ADMIT Internal Medicine
DX: G43.909 Migraine, unspecified, not intractable, without status migrainosus (principal); D68.61 Antiphospholipid syndrome; E78.5 Hyperlipidemia, unspecified; M79.7 Fibromyalgia; R56.9 Unspecified convulsions; I10 Essential (primary) hypertension; F32.9 Major depressive disorder, single episode, unspecified; F32.A Depression, unspecified; F17.210 Nicotine dependence, cigarettes, uncomplicated; Z79.899 Other long term (current) drug therapy
CPT/HCPCS: A9575; G0378; G0379; J7120